=== PATIENT | male | born 1930 | race Caucasian/White ===

== ENCOUNTER 2016-06-23 02:08 | Emergency (ER) | payer MEDICARE ==
--- NOTE | ~2016-06-23 | EKG ---
PATIENT: LIBBY LEDBETTER UNIT #: [id number] Ventricular Rate: 65 BPM Atrial Rate: 65 BPM P-R Interval: 210 ms QRS Duration: 142 ms Q-T Interval: 414 ms QTC Calculation(Bezet): 430 ms Calculated R [place]: 56 degrees Calculated T [place]: 7 degrees Diagnosis Line: Sinus rhythm with 1st degree A-V block Diagnosis Line: Non-specific intra-ventricular conduction block Diagnosis Line: Abnormal ECG Diagnosis Line: When compared with ECG of 27-OCT-2013 11:21, Diagnosis Line: SC interval has increased Diagnosis Line: Non-specific intra-ventricular conduction block Diagnosis Line: has replaced Right bundle branch block Diagnosis Line: Confirmed by MADISYN PINON MD ([id number]) on 06/24/2016 Diagnosis Line: 9:57:58 AM INTERPRETING MD: ZI DUGAN
--- NOTE | ~2016-06-23 | CT71 ---
[facility] A Service of [facility] / [facility] RADIOLOGY TEXT RESULTS PATIENT: LIBBY LEDBETTER LOCATION: [facility] : 32 UNIT #: [id number] AGE: [address]: Anita Abraham MD SEX: M ORDER DR: [id number] [facility]. [place], [place] [address] [id number] E MR#: [id number] Acc #: [id number] NAME: LIBBY LEDBETTER : 1930 SEX: M STUDY DATE/TIME: 06/23/2016 2:30 UNIT: [facility] ROOM: STUDY DESCRIPTION: CT Head Wo Contrast Attending Physician: Anita Abraham M.D. Ordering Physician: Anita Abraham M.D. Primary Care Physician: Elsie Schmidt M.D. MEDICAL IMAGING REPORT This report is preliminary unless electronic signature is present EXAM Noncontrast head CT HISTORY Generalized weakness, headaches and dizziness. COMPARISON Head CT 10/26/2013. TECHNIQUE This CT examination was performed with one or more of the following radiation dose reduction techniques: automatic exposure control, adjustment of mA and/or kV according to patient size, and iterative reconstruction. FINDINGS Axial noncontrast imaging of the brain demonstrates generalized atrophy. No mass, mass effect or midline shift. No hemorrhage or infarct. Bony calvaria, skull base, mastoids unremarkable. Small amount of mucosal thickening both maxillary sinuses. IMPRESSION Generalized atrophy in keeping with advanced age. No acute intracranial abnormality identified. Dictated by... Kin Garcia M.D. THIS IS AN ELECTRONICALLY VERIFIED REPORT [facility] A Service of [facility] / [facility] RADIOLOGY TEXT RESULTS PATIENT: LIBBY LEDBETTER LOCATION: [facility] : 32 UNIT #: [id number] AGE: [address]: Anita Abraham MD SEX: M ORDER DR: Kin Garcia M.D. at 06/24/2016 10:34 PM JOSE LUISS/bravo TD: 06/23/2016 07:25 JOB #: [id number] MEDICAL IMAGING REPORT Page 1 of 1 COPY
[~2016-06-23 02:08] MED LIST: ACETAMINOPHEN PO; ACID CONTROL20 MG PO; AGGRENOX PO; AGGRENOX1 CAP PO; AMLODIPINE BESYL5 MG PO; ASPIRIN; ASPIRIN81 M1 PO; ASPIRIN81 MG PO; ASPIRINEC PO; AUGMENTIN PO; BACTRIM DS TABL1 TA2 PO; BENZONATATE PO; CADUET PO; CALAN; CALAN PO; CLINDAMYCIN HC300 MG; CLINDAMYCIN HC300 MG PO; CLOPIDOGREL75 MG PO; COLACE PO; COMBIVENT INH14.7 GM INH; CRESTOR; CRESTOR PO; DIAZEPAM; DIAZEPAM PO; DOCUSATE SODIU100 MG PO; DOXYCYCLINE150 MG PO; FAMOTIDINE; FAMOTIDINE PO; HUGO FOLDING WA1 PKT; HYDROCODON-ACE1 EAC5 PO; HYDROCODON-ACE1 EAC7 PO; IMDUR30 MG PO; ISMO20 M2 PO; ISMO20 MG; ISMO20 MG PO; ISORDIL PO; ISOSORBIDE DINI30 MG PO; KEFLEX500 M1 PO; LEVAQUIN PO; LIPITOR20 MG PO; LISINOPRIL PO; LISINOPRIL10 MG PO; LORTAB 10-5001 EACH; LORTAB 7.5-5001 TAB; LORTAB 7.5-5001 TAB PO; LOW DOSE ASPIRI81 M1 PO; MOBIC PO; NAPROSYN500 MG PO; NORVASC10 MG PO; PEPCID AC20 M2 PO; PERCOCET 5-3251 TAB; PERCOCET 5-3251 TAB PO; PHENERGAN W/CO120 ML PO; PLAVIX; PLAVIX PO; PRAVACHOL20 MG; PRAVACHOL20 MG PO; PREDNISONE PO; PREVACID PO; SENNA PO; SENOKOT S1 TA1 PO; SERTRALINE HCL25 M1 PO; TRAMADOL HCL50 M1 PO; VALIUM10 MG PO; VALIUM2 MG PO; VIBRAMYCIN100 M1 PO; VICODIN 5/1 TAB 5/50 PO; VICODIN 5/500 T1 TAB PO; ZESTRIL10 M1 PO; ZOFRAN ODT4 MG PO
[2016-06-23 02:34] LABS: BASOPHIL# 0.1 X10e3 (0-0.3); BASOPHIL% 0.9 % (0-2.5); EOSINOPHIL# 0.5 X10e3 (0-0.7); HEMATOCRIT 43.2 % (38.0-50.0); HEMOGLOBIN 14.3 gm/dL (13.0-16.0); LYMPHOCYTE# 2.9 X10e3 (1.0-3.5); LYMPHOCYTE% 40.2 % (17.0-45.0); MEAN CELL VOLUME 92.6 FL (83-96); MEAN CORPUSCULAR HEMOGLOBIN 30.6 PG (28-34); MEAN PLATELET VOLUME 7.1 FL (6.5-11.5); MONOCYTE# 0.8 X10e3 (0-1.0); MONOCYTE% 11.3 % (3.0-12.0); NEUTROPHIL# 2.9 X10e3 (1.5-7.1); NEUTROPHIL% 40.6 % (40-75); PLATELET COUNT 160 X10e3 (140-420); RED BLOOD COUNT 4.67 X10e (3.90-5.60); RED CELL DISTRIBUTION WIDTH 13.3 % (11.0-15.5); WHITE BLOOD COUNT 7.2 X10e3 (4.0-10.5)
[2016-06-23 02:36] LABS: DIFF IND NO
[2016-06-23 02:42] LABS: URINE SOURCE CLEAN CATCH
[2016-06-23 02:47] LABS: URINE APPEARANCE CLEAR; URINE BILIRUBIN NEG (NEG); URINE BLOOD NEG (NEG); URINE COLOR YELLOW; URINE GLUCOSE NEG (NEG); URINE KETONE NEG (NEG); URINE LEUKOCYTE ESTERASE NEG (NEG); URINE NITRATE NEG (NEG); URINE PROTEIN NEG (NEG); URINE SPECIFIC GRAVITY 1.005 (1.003-1.035); URINE UROBILINOGEN 0.2 MG/DL (NEG)
[2016-06-23 02:48] LABS: PARTIAL THROMBOPLASTIN TIME 24.5 SECONDS (23.5-31.3); PROTHROMBIN TIME (PATIENT) 10.4 SECONDS (9.6-11.5)
[2016-06-23 02:52] LABS: POC - CKMB 3.6 ng/mL (0.0-7.9); POC - TROPONIN <0.05 ng/mL (<=0.05)
[2016-06-23 02:53] LABS: CULTURE INDICATED? NO
[2016-06-23 02:57] LABS: ALBUMIN SERUM 3.9 g/dL (3.5-5.0); BILIRUBIN, DIRECT 0.2 mg/dL (0.0-0.2); BILIRUBIN,INDIRECT 0.4 mg/dL (0.0-0.9); BILIRUBIN,TOTAL 0.6 mg/dL (0.2-2.0); BUN/CREATININE RATIO 12.85; CALCIUM SERUM 9.5 mg/dL (8.4-10.2); CREATININE SERUM 1.4 mg/dL (0.6-1.4); GLOM FILT RATE Estimated 46.2 mL/min (>60); MAGNESIUM 2.2 mg/dL (1.6-3.0); POTASSIUM 3.9 mmol/L (3.5-5.1); PROTEIN TOTAL SERUM 6.9 g/dL (6.0-8.3)
[2016-06-23 04:13] LABS: POC - CKMB <1.0 ng/mL (0.0-7.9); POC - TROPONIN <0.05 ng/mL (<=0.05)
== END 2016-06-23 05:03 | disposition home or self-care (01) ==
LOC: CED 02:08
PROVIDERS: Student in an Organized Health Care Education/Training Program
DX: R51 Headache (principal); Z88.1 Allergy status to other antibiotic agents; Z88.5 Allergy status to narcotic agent; Z88.8 Allergy status to other drugs, medicaments and biological substances; Z91.040 Latex allergy status
CPT/HCPCS: 36415; 70450; 80048; 80076; 81003; 82553; 82947; 83735; 83880; 84484; 85025; 85610; 85730; 93005; 99284

== ENCOUNTER 2016-08-20 12:07 | Emergency (ER) | payer MEDICARE ==
--- NOTE | ~2016-08-20 | US85 ---
[facility] A Service of [facility] & [facility] RADIOLOGY TEXT RESULTS PATIENT: LIBBY LEDBETTER LOCATION: [facility] : 32 UNIT #: [id number] AGE: [address]: Lola Curtis MD SEX: M ORDER DR: [id number] [facility] [address] [place], [place] [address] [id number] E MR#: [id number] Acc #: [id number] NAME: LIBBY LEDBETTER : 1930 SEX: M STUDY DATE/TIME: 08/20/2016 14:35 UNIT: [facility] ROOM: STUDY DESCRIPTION: LE Veins Unilat or Ltd Stdy Attending Physician: Lola Curtis M.D. Ordering Physician: Lola Curtis M.D. Primary Care Physician: Elsie Schmidt M.D. MEDICAL IMAGING REPORT This report is preliminary unless electronic signature is present EXAM Left leg vein Doppler, 08/20/2016. INDICATIONS Left foot pain for one day. TECHNIQUE Venous ultrasound examination of the left lower extremity was performed using grayscale, spectral Doppler and color flow Doppler imaging. FINDINGS The examination is negative. There is no evidence of left lower extremity deep venous thrombus from the groin to the lower calf. Visualized greater saphenous vein is also patent. IMPRESSION Negative examination. No evidence of left lower extremity DVT. Dictated by... Antonio Madden Jr., M.D. THIS IS AN ELECTRONICALLY VERIFIED REPORT Antonio Madden Jr., M.D. at 08/20/2016 4:58 PM FIDEL/donny TD: 08/20/2016 16:48 JOB #: [id number] MEDICAL IMAGING REPORT Page 1 of 1 COPY
--- NOTE | ~2016-08-20 | CR126 ---
[facility] A Service of [facility] & [facility] RADIOLOGY TEXT RESULTS PATIENT: LIBBY LEDBETTER LOCATION: [facility] : 32 UNIT #: [id number] AGE: [address]: Lola Curtis MD SEX: M ORDER DR: [id number] [facility] [address] [place], [place] [address] [id number] E MR#: [id number] Acc #: [id number] NAME: LIBBY LEDBETTER : 1930 SEX: M STUDY DATE/TIME: 08/20/2016 13:23 UNIT: [facility] ROOM: STUDY DESCRIPTION: CR Foot Complete Min 3 View Lt Attending Physician: Lola Curtis M.D. Ordering Physician: Lola Curtis M.D. Primary Care Physician: Elsie Schmidt M.D. MEDICAL IMAGING REPORT This report is preliminary unless electronic signature is present EXAM Left foot 08/20/2016 COMPARISON 07/26/2014 INDICATIONS Pain on left foot and toe after dropping a 5 gallon paint can on foot a year ago. Pain is worsening in the last 2 days. FINDINGS Three views of the left foot were obtained. There is mild degenerative change at the first MTP joint. The other bones are normal. IMPRESSION Mild degenerative changes first MTP joint. Otherwise, normal. Dictated by... Cristian Hair M.D. THIS IS AN ELECTRONICALLY VERIFIED REPORT Cristian Hair M.D. at 08/20/2016 4:30 PM JARVIS/gurpreet TD: 08/20/2016 16:08 JOB #: [id number] MEDICAL IMAGING REPORT Page 1 of 1 COPY
== END 2016-08-20 16:50 | disposition home or self-care (01) ==
LOC: CED 12:07
DX: M79.672 Pain in left foot (principal); G89.29 Other chronic pain; I10 Essential (primary) hypertension; K21.9 Gastro-esophageal reflux disease without esophagitis; E78.5 Hyperlipidemia, unspecified; I25.10 Atherosclerotic heart disease of native coronary artery without angina pectoris; Z86.73 Personal history of transient ischemic attack (TIA), and cerebral infarction without residual deficits; Z90.89 Acquired absence of other organs; Z88.1 Allergy status to other antibiotic agents; Z91.041 Radiographic dye allergy status; Z88.5 Allergy status to narcotic agent; Z88.8 Allergy status to other drugs, medicaments and biological substances
CPT/HCPCS: 73630; 93971; 99284

== ENCOUNTER 2016-09-22 22:50 | Inpatient (IN) | payer MEDICARE ==
[~2016-09-22] VITALS: Ht 177.8 cm; Wt 83.2 kg
--- NOTE | ~2016-09-22 | OR ---
Unit #: [id number] #: [id number] Patient: LIBBY LEDBETTER [id number] [address] [place], [place] [address] [id number] I MR#: [id number] NAME: LIBBY LEDBETTER ROOM: 316 Date of Procedure: 09/26/2016 Admission Date: 09/23/2016 Surgeon: David Huddleston M.D. : 1930 Attending Physician: Richard Brooke M.D. Primary Care Physician: Elsie Schmidt M.D. OPERATIVE REPORT PREOPERATIVE DIAGNOSES Hematochezia and anemia of acute gastrointestinal blood loss. PROCEDURES PERFORMED Colonoscopy and polypectomy. POSTOPERATIVE DIAGNOSES 1. The patient had diffuse melanosis coli. 2. There were small internal hemorrhoids. 3. There were 3 polyps, all in transverse colon. They range in size from 5 mm to a 1 cm each. All were removed using snare polypectomy. 4. Rest of the examination up to cecum was normal. The quality of the prep was excellent. RECOMMENDATIONS We will monitor the hemoglobin and hematocrit. It is noteworthy the patient's hemoglobin has dropped from 10.2 to 8.0 over the past 3 to 4 days. Stability of hemoglobin will be established for at least 24 hours before the patient can be discharged home. We will also recheck his CBC, BMP, as well as B12, folate, and iron studies tomorrow morning. SEDATION USED Procedural sedation. Versed 5 mg and fentanyl 50 mcg. DESCRIPTION OF PROCEDURE Following detailed explanation of potential risks and complications of colonoscopy, namely perforation, bleeding, and complication related to sedation, the patient was brought to GI lab, laid in the left lateral decubitus position. A digital rectal examination was performed, which was normal. Lubricated tip of the Olympus videocolonoscope was inserted through the anus and advanced under direct vision. The scope was advanced and passed up to sigmoid into descending colon. No diverticula were noted in this area. The patient, however, did have evidence of melanosis coli. The scope was then navigated all the way up to cecum with visualization of the ileocecal valve and the appendiceal orifice. Preparation was excellent with good visualization and photodocumentation was obtained. Successive segments of the colonic mucosa were examined upon withdrawal. The patient was noted to have evidence of diffuse melanosis coli more pronounced in the right side of the colon. Three polyps noted, 2 in the proximal transverse colon, 1 in the distal transverse colon. The polyps ranged in size from 5 mm to a 1 cm each. All were sessile and were removed using snare polypectomy. They were all retrieved and sent for Unit #: [id number] #: [id number] Patient: LIBBY LEDBETTER histology. No additional polyps noted. The patient did not have any diverticulosis, but did have small internal hemorrhoids seen at the anal verge. The scope was then withdrawn. The patient returned to the recovery area. He tolerated the procedure without any postprocedure complications. Dictated by... Cheri Encarnacion/alma TD: 09/27/2016 04:06 JOB #: [id number] OPERATIVE REPORT Page 1 of 1 X David Huddleston MD X PROCEDURE OPERATIVE NOTE
--- NOTE | ~2016-09-22 | HP ---
Unit #: [id number] #: [id number] Patient: LIBBY LEDBETTER [id number] [address] [place], [place] [address] [id number] I MR#: [id number] NAME: LIBBY LEDBETTER ROOM: 316 Age: 86 Sex: M Admission Date: 09/23/2016 : 1930 Attending Physician: Surekha Dockery M.D. Primary Care Physician: Elsie Schmidt M.D. HISTORY AND PHYSICAL CHIEF COMPLAINT GI bleed. HISTORY This 86-year-old male with CAD, essential hypertension, previous CVA maintained on aspirin and Aggrenox, is admitted for a GI bleed. The patient states that he was in his usual state of health until four days prior to admission when he developed constipation despite using Colace and MiraLAX. Yesterday, he used a rectal suppository, then experienced very dark, coal appearing stool. He presented to this emergency department with hematocrit of 35.3, down from 43.2 in April. On rectal examination, he had black maroonish stool. He denies abdominal pain or rectal pain with the above. In the ER, he was given 40 mg of IV Protonix. Denies previous colonoscopy in the past. PAST MEDICAL HISTORY 1. Prediabetes. 2. CAD with previous PA in 2003 requiring PTCA and stent of the RCA. Last Cardiolite stress test 06/2013 was negative for ischemia. The patient is followed by Dr. Yoon. 3. History of rectal prolapse and hemorrhoids. 4. 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 5. Essential hypertension. 6. Chronic kidney disease. 7. Hyperlipidemia. 8. GERD. 9. Anxiety. 10. DJD with chronic back pain. 11. Hyperlipidemia. 12. Appendectomy. 13. Cholecystectomy. 14. Heel surgery. ALLERGIES Keflex, IV dye, methyldopa, Robitussin, morphine, albuterol and grapefruit. HOME MEDICATIONS 1. Lipitor 20 mg q. h.s. 2. Imdur 30 mg q. h.s. 3. Aggrenox 25/200 q. h.s. 4. Lisinopril 10 mg daily. 5. Norvasc 10 mg daily. Unit #: [id number] #: [id number] Patient: LIBBY LEDBETTER 6. Aspirin 81 mg daily. 7. Senna S, one at noon and two at bedtime. 8. Colace 300 mg daily. 9. Vitamin B12 1000 mcg daily. 10. Valium 10 mg p.r.n. 11. Lortab 10/325 q.i.d. p.r.n. 12. MiraLAX as needed. FAMILY HISTORY Negative for colon or GI disease. Positive for CVA. SOCIAL HISTORY The patient lives with his daughter. Lifelong nonsmoker, does not drink alcohol. REVIEW OF SYSTEMS Notable for recent constipation and GI bleeding, previous CVA, CAD, hypertension, hyperlipidemia, rectal prolapse and hemorrhoids, DJD, above mentioned surgeries. All other systems were reviewed and are negative. PHYSICAL EXAMINATION GENERAL APPEARANCE: Pleasant, pale, 86-year-old male, currently in no acute distress. VITAL SIGNS: Temperature 98.1, pulse 60, respirations 18, blood pressure 124/73. O2 saturation is 100% on room air. HEENT: Eyes PERRLA. Extraocular muscles are intact. Pharynx is benign. NECK: Supple without adenopathy or thyromegaly. CHEST: Clear. CARDIAC: Normal S1 and S2 without S3, S4 or murmur. ABDOMEN: Bowel sounds are present, nontender. No hepatosplenomegaly or masses. RECTAL EXAMINATION: Per the ER physician, revealed black, maroon stool. EXTREMITIES: Without C, C or E. Pedal pulses are present. NEUROLOGIC EXAM: The patient is awake, alert, oriented. Cranial nerves are intact. Equal strength throughout. DIAGNOSTIC STUDIES LABORATORY: Admission labs - hematocrit is 35.3, down from 43.2 in June. Normal MCV, white count, platelet count and coags. SMA-12 - BUN 36, creatinine 1.5, up from a BUN of 18, creatinine of 1.4 in June. Albumin is 3.4. ASSESSMENT 1. GI bleeding on aspirin and Aggrenox: Likely lower source but stool is black so will continue proton pump inhibitor for now until above is sorted out. Patient presents with new normocytic anemia. 2. History of rectal prolapse and hemorrhoids. 3. Prior CVA, on aspirin and Aggrenox. 4. Essential hypertension. 5. CAD, status post PCI and stent. 6. Hyperlipidemia. 7. Chronic kidney disease. PLANS 1. Hold aspirin and Aggrenox. 2. Serial H and H, obtain, type and screen. 3. IV fluids. Unit #: [id number] #: [id number] Patient: LIBBY LEDBETTER 4. GI to see. 5. SCDs for DVT prophylaxis. 6. Continue Protonix for now. 7. Change medications to an alternate route while NPO. Dictated by Surekha Dockery M.D. AML/df TD: 09/23/2016 05:14 JOB #: [id number] HISTORY AND PHYSICAL Page 1 of 1 X Surekha Dockery MD X HISTORY AND PHYSICAL
--- NOTE | ~2016-09-22 | DS ---
Unit #: [id number] #: [id number] Patient: LIBBY LEDBETTER [id number] [address] [place], [place] [address] [id number] I MR#: [id number] NAME: LIBBY LEDBETTER ROOM: 316 Age: 86 Sex: M Admission Date: 09/23/2016 : 1930 Discharge Date: 09/28/2016 Attending Physician: Richard Brooke M.D. Primary Care Physician: Elsie Schmidt M.D. DISCHARGE SUMMARY FINAL DIAGNOSES 1. Gastrointestinal bleed. 2. Anemia. SECONDARY DIAGNOSES 1. Prior cerebrovascular accident. 2. Hypertension. 3. Coronary artery disease. 4. Hyperlipidemia. CONSULTS Dr. David Huddleston. PROCEDURES 1. He had an EGD, which was normal except for coincidental distal esophageal ring with no potential source of bleeding in the upper GI. 2. He also had a colonoscopy, which showed diffuse melanosis coli, 3 polyps in the transverse colon removed. HOSPITAL COURSE This 86-year-old male basically presented with GI bleeding. He was anemic and was seen by GI. He had a colonoscopy, as well as an EGD. He did receive 2 units of packed red blood cells. Hemoglobin and hematocrit today are 10.3 and 29.6. His blood pressure was low, and he was taken off his blood pressure medications at the time. He had been on Aggrenox in the past for history of, I believe, a stroke in the past. No evidence of bleeding. Hemoglobin is stable post transfusion. He is suitable for discharge at this time; however, GI will provide guidance as to when to restart his Aggrenox. MEDICATIONS ON DISCHARGE 1. Diazepam 10 mg p.o. daily as needed. 2. Tylenol 650 mg p.o. q.6 hours p.r.n. 3. Sennosides 2 tablets p.o. at bedtime, 2 tablets p.o. at noon. 4. MiraLAX 17 grams p.o. as needed for constipation. 5. Lipitor 20 mg at bedtime. 6. Hydrocodone 10/325 mg 1 tablet p.o. q.6 hours p.r.n. pain. 7. Protonix 40 mg p.o. b.i.d. 8. Isosorbide dinitrate 30 mg p.o. at bedtime. 9. Vitamin B12 - 1,000 mg p.o. at noon. DISCHARGE PLAN He is scheduled to follow up with his PCP in 3-5 days. He will be discharged home with home health and get a CBC and BMP on 10/01/16. Unit #: [id number] #: [id number] Patient: LIBBY LEDBETTER NOTE: Time spent coordinating discharge was about 32 minutes. Dictated by... Cheri Stevens TD: 09/28/2016 09:56 JOB #: [id number] DISCHARGE SUMMARY Page 1 of 1 X Karol Doe MD X DISCHARGE SUMMARY
--- NOTE | ~2016-09-22 | CO ---
Unit #: [id number] #: [id number] Patient: LIBBY LEDBETTER [id number] [address] [place], [place] [address] [id number] I MR#: [id number] NAME: LIBBY LEDBETTER ROOM: 316 Age: 86 Sex: M Admission Date: 09/23/2016 : 1930 Attending Physician: Richard Brooke M.D. Primary Care Physician: Elsie Schmidt M.D. Consultation Date: 09/23/2016 CONSULTATION REPORT PRIMARY CARE PHYSICIAN Elsie Schmidt M.D. REASON FOR CONSULTATION 1. GI bleed. 2. Anemia of acute gastrointestinal blood loss. HISTORY OF PRESENT ILLNESS Mr. Jameson is a pleasant 86-year-old white gentleman. The patient apparently was constipated and as a result, he took some MiraLAX at home, subsequently had seen like substantial bowel movement with diarrhea and passed black tarry stools. In addition, he also felt weak and tired. He denies any abdominal pain. He does have background history of rectal prolapse as well as hemorrhoids. PAST MEDICAL HISTORY Significant for history of hypertension, hyperlipidemia, anxiety, chronic kidney disease, stroke, history of MA in 2003 with PTCA and stent placement, and history of prediabetes. PAST SURGICAL HISTORY Included cholecystectomy, appendectomy, surgery on his heel. MEDICATIONS At home included the following; Aggrenox 25/200 q.h.s., lisinopril, Norvasc, aspirin, senna, Colace, vitamin B12, Valium, Lortab, MiraLAX, Imdur, Lipitor. ALLERGIES Methyldopa, Robitussin, morphine, albuterol, grapefruit, and Keflex. FAMILY HISTORY The patient's mother apparently had colon cancer in advanced age. There is history of stroke in the family. REVIEW OF SYSTEMS Detailed review of systems does reveals presence of constipation and GI bleed as mentioned above. No history of fever, chills, or rigors. No history of headache, seizures, chest pain, or syncope. No history of cough, expectoration, or hemoptysis. No history of dysuria, hematuria, or pyuria. No history of focal seizures or extremity weakness. Rest of the review of organ systems is unremarkable. PHYSICAL EXAMINATION Unit #: [id number] #: [id number] Patient: LIBBY LEDBETTER GENERAL: He is awake, alert, and oriented, appears comfortable. VITAL SIGNS: Stable with a temperature of 97.9, pulse is 66 per minute and regular, respiratory rate is 18, blood pressure is 133/75. He weighs 174 pounds and appears overweight. HEENT: He has mild pallor. There being no icterus, lymphadenopathy, or peripheral edema. CARDIOVASCULAR: Normal heart sounds. No murmurs. LUNGS: Auscultation over the lungs reveal normal breath sounds. Good air entry. ABDOMEN: Soft, obese, and nontender. Liver and spleen are not palpable. Bowel sounds normal. DIAGNOSTIC STUDIES LABORATORY RESULTS: Shows a hemoglobin of 10.4, admission hemoglobin was 12.1 yesterday. White count and platelet counts are normal. BUN and creatinine ratio is 36 and 1.4, baseline is 17 and 1.2. Rest of the serum chemistry and LFTs are normal. CLINICAL IMPRESSION It is likely the patient may have had upper gastrointestinal bleed from an ulcer disease or something similar. An upper endoscopy and possible endotherapy therefore indicated will be scheduled later today. The pros and cons of procedure, potential risks, complications discussed with the patient and he was reassured. Thank you very much for asking me to see this pleasant gentleman. I appreciate the consult. Dictated by... Cheri Encarnacion/alma TD: 09/23/2016 17:42 JOB #: [id number] Surekha Dockery M.D. CONSULTATION REPORT Page 1 of 1 X David Huddleston MD X CONSULTATION REPORT
--- NOTE | ~2016-09-22 | OR ---
Unit #: [id number] #: [id number] Patient: LBIBY LEDBETTER [id number] [facility]. [place], [place] [address] [id number] I MR#: [id number] NAME: LIBBY LEDBETTER ROOM: 316 Date of Procedure: 09/23/2016 Admission Date: 09/23/2016 Surgeon: David Huddleston M.D. : 1930 Attending Physician: Richard Brooke M.D. Primary Care Physician: Elsie Schmidt M.D. OPERATIVE REPORT PRIMARY CARE PHYSICIAN Elsie Schmidt M.D. PREOPERATIVE DIAGNOSES Possible upper gastrointestinal bleed. The patient has presented with history of melena, elevated BUN and creatinine ratio, and drop in hemoglobin. PROCEDURES PERFORMED Upper gastrointestinal endoscopy. POSTOPERATIVE DIAGNOSES Completely normal examination up to third part of duodenum. The patient did have a coincidental distal esophageal Schatzki ring. The latter was clearly nonobstructing. RECOMMENDATIONS There is no potential source of blood loss in the upper gastrointestinal tract. Suggest monitor hemoglobin and hematocrit and if there is a significant drop in hemoglobin, consider colonoscopy. It is noteworthy that the patient is quite frail and it would be best to avoid colonoscopy if possible. The above issues were discussed with the patient's daughter. SEDATION USED MAC. DESCRIPTION OF PROCEDURE Following detailed explanation of potential risks and complications of an upper endoscopy, namely perforation, bleeding, and complications related to sedation, the patient was brought to GI lab and laid in the left lateral decubitus position. Lubricated tip of the Olympus video upper endoscope was passed through the bite block into the proximal esophagus under direct vision. The entire esophageal mucosa was examined and appeared normal. Z-line was nicely demarcated, there being no esophagitis or hiatus hernia. The patient did have a distal esophageal Schatzki ring. This was felt to be wide open. The scope was then advanced into the gastric cavity and the latter was insufflated. Mucosa of the fundus, body, and antrum examined and appeared unremarkable. Pylorus was intubated with visualization of the normal duodenal bulb and second and third part of the duodenum. Upon withdrawal and retroflexion, incisura, cardia, and greater curve examined and no additional findings noted. The scope was then withdrawn in the distal esophagus. Entire esophageal Unit #: [id number] #: [id number] Patient: LIBBY LEDBETTER mucosa was examined all the way up to pharynx, no additional findings noted. The patient tolerated the procedure without any postprocedure complications. Dictated by.Cheri Bales/alma TD: 09/23/2016 12:49 JOB #: [id number] Surekha Dockery M.D. OPERATIVE REPORT Page 1 of 1 X David Huddleston MD X PROCEDURE OPERATIVE NOTE
[2016-09-22 23:38] LABS: BASOPHIL% 0.5 % (0-2.5); DIFF IND NO; EOSINOPHIL# 0.5 X10e3 (0-0.7); EOSINOPHIL% 5.5 % (0.0-7.0); HEMATOCRIT 35.3 % (38.0-50.0); HEMOGLOBIN 12.1 gm/dL (13.0-16.0); LYMPHOCYTE# 2.4 X10e3 (1.0-3.5); LYMPHOCYTE% 26.1 % (17.0-45.0); MEAN CORPUSCULAR HEMOGLOBIN 31.8 PG (28-34); MEAN CORPUSCULAR HGB CONC 34.1 g/dL (30-36); MEAN PLATELET VOLUME 6.7 FL (6.5-11.5); MONOCYTE% 11.6 % (3.0-12.0); NEUTROPHIL# 5.1 X10e3 (1.5-7.1); NEUTROPHIL% 56.3 % (40-75); PLATELET COUNT 181 X10e3 (140-420); RED CELL DISTRIBUTION WIDTH 13.8 % (11.0-15.5)
[2016-09-22 23:59] LABS: ALBUMIN SERUM 3.4 g/dL (3.5-5.0); BILIRUBIN, DIRECT 0.1 mg/dL (0.0-0.2); BILIRUBIN,INDIRECT 0.6 mg/dL (0.0-0.9); BILIRUBIN,TOTAL 0.7 mg/dL (0.2-2.0); CALCIUM SERUM 9.2 mg/dL (8.4-10.2); CREATININE SERUM 1.5 mg/dL (0.6-1.4); GLOM FILT RATE Estimated 42.2 mL/min (>60); POTASSIUM 4.5 mmol/L (3.5-5.1)
[2016-09-23] LABS: PARTIAL THROMBOPLASTIN TIME 22.5 SECONDS (23.5-31.3); PROTHROMBIN TIME (PATIENT) 11.2 SECONDS (10.0-11.7)
[2016-09-23] MEDS ORDERED: LIPITOR20 MG PO (02:20)
[2016-09-23] MEDS ORDERED: ISOSORBIDE DINI30 MG PO (02:21)
[2016-09-23] MEDS ORDERED: ASPIRIN81 M2 (02:22)
[2016-09-23] MEDS ORDERED: AGGRENOX PO (02:22)
[2016-09-23] MEDS ORDERED: AMLODIPINE BESY10 MG PO (02:22)
[2016-09-23] MEDS ORDERED: SENNA8.6 M1 PO ×2 (02:24→02:25)
[2016-09-23] MEDS ORDERED: STOOL SOFTENER1 EAC1 PO (02:25)
[2016-09-23] MEDS ORDERED: VITAMIN B122500 MC1 PO (02:27)
[2016-09-23] MEDS ORDERED: VALIUM10 MG PO (02:27)
[2016-09-23] MEDS ORDERED: LORTAB 10-3251 EACH PO (02:28)
[2016-09-23] MEDS ORDERED: MIRALAX119 GM PO (02:29)
[2016-09-23 07:03] LABS: HEMATOCRIT 30.6 % (38.0-50.0); HEMOGLOBIN 10.4 gm/dL (13.0-16.0); MEAN CELL VOLUME 93.3 FL (83-96); MEAN CORPUSCULAR HEMOGLOBIN 31.6 PG (28-34); MEAN CORPUSCULAR HGB CONC 33.9 g/dL (30-36); MEAN PLATELET VOLUME 6.9 FL (6.5-11.5); RED BLOOD COUNT 3.28 X10e (3.90-5.60); RED CELL DISTRIBUTION WIDTH 14.1 % (11.0-15.5); WHITE BLOOD COUNT 7.3 X10e3 (4.0-10.5)
[2016-09-23 07:37] LABS: BUN/CREATININE RATIO 25.71; CALCIUM SERUM 8.9 mg/dL (8.4-10.2); CREATININE SERUM 1.4 mg/dL (0.6-1.4); GLOM FILT RATE Estimated 45.8 mL/min (>60); POTASSIUM 4.4 mmol/L (3.5-5.1)
[2016-09-23 16:09] LABS: HEMATOCRIT 30.4 % (38.0-50.0); HEMOGLOBIN 10.3 gm/dL (13.0-16.0); MEAN CELL VOLUME 93.6 FL (83-96); MEAN CORPUSCULAR HEMOGLOBIN 31.8 PG (28-34); MEAN PLATELET VOLUME 6.5 FL (6.5-11.5); RED BLOOD COUNT 3.25 X10e (3.90-5.60); RED CELL DISTRIBUTION WIDTH 14.1 % (11.0-15.5); WHITE BLOOD COUNT 6.9 X10e3 (4.0-10.5)
[2016-09-24 06:16] LABS: HEMATOCRIT 29.5 % (38.0-50.0); MEAN CELL VOLUME 94.2 FL (83-96); MEAN CORPUSCULAR HEMOGLOBIN 31.9 PG (28-34); MEAN CORPUSCULAR HGB CONC 33.8 g/dL (30-36); MEAN PLATELET VOLUME 7.1 FL (6.5-11.5); RED BLOOD COUNT 3.13 X10e (3.90-5.60); RED CELL DISTRIBUTION WIDTH 14.1 % (11.0-15.5); WHITE BLOOD COUNT 6.2 X10e3 (4.0-10.5)
[2016-09-24 06:58] LABS: BUN/CREATININE RATIO 16.42; CREATININE SERUM 1.4 mg/dL (0.6-1.4); GLOM FILT RATE Estimated 45.8 mL/min (>60); POTASSIUM 4.1 mmol/L (3.5-5.1)
[2016-09-24 11:39] LABS: HEMATOCRIT 28.5 % (38.0-50.0); HEMOGLOBIN 9.5 gm/dL (13.0-16.0)
[2016-09-25 04:27] LABS: HEMATOCRIT 24.8 % (38.0-50.0); HEMOGLOBIN 8.5 gm/dL (13.0-16.0); MEAN CELL VOLUME 93.5 FL (83-96); MEAN CORPUSCULAR HEMOGLOBIN 32.1 PG (28-34); MEAN CORPUSCULAR HGB CONC 34.4 g/dL (30-36); MEAN PLATELET VOLUME 6.7 FL (6.5-11.5); RED BLOOD COUNT 2.65 X10e (3.90-5.60); RED CELL DISTRIBUTION WIDTH 13.9 % (11.0-15.5); WHITE BLOOD COUNT 5.9 X10e3 (4.0-10.5)
[2016-09-25 04:54] LABS: BUN/CREATININE RATIO 10.71; CALCIUM SERUM 8.6 mg/dL (8.4-10.2); CREATININE SERUM 1.4 mg/dL (0.6-1.4); GLOM FILT RATE Estimated 45.8 mL/min (>60); POTASSIUM 4.5 mmol/L (3.5-5.1)
[2016-09-25 11:18] LABS: HEMATOCRIT 25.7 % (38.0-50.0); HEMOGLOBIN 8.5 gm/dL (13.0-16.0)
[2016-09-25 16:52] LABS: HEMATOCRIT 26.4 % (38.0-50.0)
[2016-09-25 22:59] LABS: HEMATOCRIT 27.6 % (38.0-50.0); HEMOGLOBIN 9.4 gm/dL (13.0-16.0)
[2016-09-26 06:48] LABS: HEMATOCRIT 24.2 % (38.0-50.0); MEAN CELL VOLUME 94.4 FL (83-96); MEAN CORPUSCULAR HEMOGLOBIN 31.1 PG (28-34); MEAN PLATELET VOLUME 7.1 FL (6.5-11.5); RED BLOOD COUNT 2.56 X10e (3.90-5.60); WHITE BLOOD COUNT 4.3 X10e3 (4.0-10.5)
[2016-09-26 07:17] LABS: BUN/CREATININE RATIO 8.33; CALCIUM SERUM 8.5 mg/dL (8.4-10.2); CREATININE SERUM 1.2 mg/dL (0.6-1.4); GLOM FILT RATE Estimated 55.2 mL/min (>60); POTASSIUM 3.8 mmol/L (3.5-5.1)
[2016-09-27 05:14] LABS: HEMATOCRIT 30.3 % (38.0-50.0); MEAN CORPUSCULAR HEMOGLOBIN 31.3 PG (28-34); MEAN CORPUSCULAR HGB CONC 34.8 g/dL (30-36); MEAN PLATELET VOLUME 6.8 FL (6.5-11.5); RED BLOOD COUNT 3.37 X10e (3.90-5.60); RED CELL DISTRIBUTION WIDTH 15.2 % (11.0-15.5)
[2016-09-27 05:25] LABS: HEMOGLOBIN 10.6 gm/dL (13.0-16.0)
[2016-09-27 05:26] LABS: WHITE BLOOD COUNT 6.7 X10e3 (4.0-10.5)
[2016-09-27 06:14] LABS: FERRITIN 18 ng/mL (24-336)
[2016-09-27 06:18] LABS: FOLATE (FOLIC ACID) >23.3 ng/mL (>5.8)
[2016-09-27 06:32] LABS: BUN/CREATININE RATIO 10.66; CALCIUM SERUM 8.9 mg/dL (8.4-10.2); CREATININE SERUM 1.5 mg/dL (0.6-1.4); GLOM FILT RATE Estimated 42.2 mL/min (>60); POTASSIUM 3.8 mmol/L (3.5-5.1)
[2016-09-28 06:10] LABS: BASOPHIL% 0.5 % (0-2.5); EOSINOPHIL# 0.5 X10e3 (0-0.7); EOSINOPHIL% 7.1 % (0.0-7.0); HEMATOCRIT 29.6 % (38.0-50.0); HEMOGLOBIN 10.3 gm/dL (13.0-16.0); LYMPHOCYTE# 2.3 X10e3 (1.0-3.5); LYMPHOCYTE% 32.7 % (17.0-45.0); MEAN CELL VOLUME 89.9 FL (83-96); MEAN CORPUSCULAR HEMOGLOBIN 31.3 PG (28-34); MEAN CORPUSCULAR HGB CONC 34.8 g/dL (30-36); MEAN PLATELET VOLUME 6.8 FL (6.5-11.5); MONOCYTE# 0.8 X10e3 (0-1.0); MONOCYTE% 10.7 % (3.0-12.0); NEUTROPHIL# 3.5 X10e3 (1.5-7.1); PLATELET COUNT 161 X10e3 (140-420); RED CELL DISTRIBUTION WIDTH 14.8 % (11.0-15.5)
[2016-09-28 06:22] LABS: DIFF IND NO
[2016-09-28 06:40] LABS: CALCIUM SERUM 9.1 mg/dL (8.4-10.2); CREATININE SERUM 1.5 mg/dL (0.6-1.4); GLOM FILT RATE Estimated 42.2 mL/min (>60); POTASSIUM 3.4 mmol/L (3.5-5.1)
[2016-09-28] MEDS ORDERED: ACETAMINOPHEN325 MG PO (09:22)
[2016-09-28] MEDS ORDERED: PROTONIX PO (09:30)
== END 2016-09-28 19:41 | DRG 378 ==
LOC: CED 22:50 → C3A PCU 09-23 01:00 → CEDOF 09-23 01:00 → CED 09-23 01:03 → CEDOF 09-23 01:03 → C3A PCU 09-23 01:45
PROVIDERS: Emergency Medicine; Family Medicine; Internal Medicine; Internal Medicine Gastroenterology
PROC: 30233N1 Transfusion of Nonautologous Red Blood Cells into Peripheral Vein, Percutaneous Approach (ICD-10-PCS; 2016-09-23)
PROC: 0DJ08ZZ Inspection of Upper Intestinal Tract, Via Natural or Artificial Opening Endoscopic (ICD-10-PCS; principal; 2016-09-23 11:16)
PROC: 0DBL8ZZ Excision of Transverse Colon, Via Natural or Artificial Opening Endoscopic (ICD-10-PCS; 2016-09-26)
DX: K92.2 Gastrointestinal hemorrhage, unspecified (principal); D62 Acute posthemorrhagic anemia; I12.9 Hypertensive chronic kidney disease with stage 1 through stage 4 chronic kidney disease, or unspecified chronic kidney disease; Z88.1 Allergy status to other antibiotic agents; Z88.5 Allergy status to narcotic agent; Z86.73 Personal history of transient ischemic attack (TIA), and cerebral infarction without residual deficits; K59.00 Constipation, unspecified; K21.9 Gastro-esophageal reflux disease without esophagitis; Z90.49 Acquired absence of other specified parts of digestive tract; N18.9 Chronic kidney disease, unspecified; K63.5 Polyp of colon; E78.5 Hyperlipidemia, unspecified; Z80.0 Family history of malignant neoplasm of digestive organs; I25.10 Atherosclerotic heart disease of native coronary artery without angina pectoris; Z95.5 Presence of coronary angioplasty implant and graft; I25.2 Old myocardial infarction; Z79.82 Long term (current) use of aspirin
CPT/HCPCS: 36415; 80048; 80076; 82607; 82728; 82746; 83540; 83550; 85014; 85018; 85025; 85027; 85610; 85730; 86850; 86900; 86901; 86923; 88305; 88313; 96374; 97116; 97162; 97166; 97530; 99285; C9113; G8978-GP; G8979-GP; G8984-GO; G8985-GO; J1940; J2250; J2405; J2765; J3010; P9016